=== PATIENT | male | born 1990 | race American Indian/Alaskan Native ===

== ENCOUNTER 2018-04-17 06:42 | Emergency (ER) | payer MEDICAID ==
[2018-04-17 07:02] VITALS: RESP 18; BMI 28.7
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
[2018-04-17 09:16] VITALS: BP 123/79; PULSE 76; TEMP 98; O2SAT 98
--- NOTE | 2018-04-17 13:31 | RAD ---
Date of service: 04/17/2018 PROCEDURE: Radiographs of the Chest and Right Ribs. HISTORY: pain r/o fracture COMPARISON: None available. TECHNIQUE: Frontal radiograph of the chest and multiple oblique radiographs of the right ribs were obtained. FINDINGS: RIGHT RIBS: No fracture or focal lesion visualized. LUNGS: Clear. PLEURA: No pneumothorax or pleural fluid. CARDIOVASCULAR: Normal cardiac size. No pulmonary vascular congestion. No aortic atherosclerotic calcification present OTHER FINDINGS: None. IMPRESSION: Unremarkable radiographs of the chest and right ribs. No right rib fracture.
== END 2018-04-17 08:25 | disposition home or self-care (01) ==
LOC: ED 06:42
DX: R07.81 Pleurodynia (principal)